=== PATIENT | female | born 1955 | race Caucasian/White ===

== ENCOUNTER 2018-04-27 22:41 | Emergency (ER) | payer OTHER ==
[~2018-04-27] VITALS: Ht 167.6 cm; Wt 108.9 kg
[~2018-04-27 22:41] MED LIST: Glucophage1000 MG PO; LOSA25 PO; Norco 5-325 Ta1 EACH PO; SAXA2.5T; TOUJEO SOL300 UNIT/1 SC; Zofran4 MG PO
[2018-04-28] MEDS ORDERED: Apidra Sol100 UNIT/1 SC (02:18)
[2018-04-28] MEDS ORDERED: Percocet 5-3251 EACH PO (04:03)
== END 2018-04-28 04:21 | disposition home or self-care (01) ==
LOC: ER 22:41
DX: S82.831A Other fracture of upper and lower end of right fibula, initial encounter for closed fracture (principal); S80.12XA Contusion of left lower leg, initial encounter; S80.11XA Contusion of right lower leg, initial encounter; V40.6XXA Car passenger injured in collision with pedestrian or animal in traffic accident, initial encounter; Z91.040 Latex allergy status; Z88.8 Allergy status to other drugs, medicaments and biological substances; Z79.899 Other long term (current) drug therapy; Z79.84 Long term (current) use of oral hypoglycemic drugs; Z79.4 Long term (current) use of insulin
CPT/HCPCS: 29515; 73590; 73610; 96372; 99283-25; J1885

== ENCOUNTER → 2018-06-27 | Outpatient (CLI) | payer OTHER ==
[~2018-06-27] MED LIST changes: +Apidra Sol100 UNIT/1 SC; +Percocet 5-3251 EACH PO
== END | disposition home or self-care (01) ==
LOC: LAB SHORT 15:16 → LAB 15:16
DX: L03.115 Cellulitis of right lower limb (principal)
CPT/HCPCS: 87070; 87075; 87147; 87205

== ENCOUNTER → 2018-07-16 | Outpatient (CLI) | payer OTHER | END | disposition home or self-care (01) | LOC: LAB 16:17 → LAB SHORT 16:17 | DX: L03.115 Cellulitis of right lower limb (principal) | CPT/HCPCS: 87070; 87075; 87077; 87147; 87186; 87205 ==

== ENCOUNTER 2018-08-08 00:12 | Day surgery (SDC) | payer OTHER | END 2018-08-08 22:42 | disposition home or self-care (01) | LOC: WOUND 00:12 | DX: E11.622 Type 2 diabetes mellitus with other skin ulcer (principal); L97.825 Non-pressure chronic ulcer of other part of left lower leg with muscle involvement without evidence of necrosis; R60.0 Localized edema ==

== ENCOUNTER 2018-08-14 | Day surgery (SDC) | payer OTHER | END 2018-08-15 22:48 | disposition home or self-care (01) | LOC: WOUND | DX: E11.622 Type 2 diabetes mellitus with other skin ulcer (principal); L97.812 Non-pressure chronic ulcer of other part of right lower leg with fat layer exposed; L97.825 Non-pressure chronic ulcer of other part of left lower leg with muscle involvement without evidence of necrosis; R60.0 Localized edema; L92.8 Other granulomatous disorders of the skin and subcutaneous tissue ==

== ENCOUNTER 2018-10-02 00:22 | Day surgery (SDC) | payer OTHER | END 2018-10-02 22:52 | disposition home or self-care (01) | LOC: WOUND 00:22 | PROC: 0HBKXZZ Excision of Right Lower Leg Skin, External Approach (ICD-10-PCS; principal; 2018-10-02) | DX: E11.622 Type 2 diabetes mellitus with other skin ulcer (principal); L97.812 Non-pressure chronic ulcer of other part of right lower leg with fat layer exposed; R60.0 Localized edema ==

== ENCOUNTER 2018-10-10 09:57 | Day surgery (SDC) | payer OTHER | END 2018-10-10 22:49 | disposition home or self-care (01) | LOC: WOUND 09:57 | DX: L97.812 Non-pressure chronic ulcer of other part of right lower leg with fat layer exposed (principal); V89.2XXD Person injured in unspecified motor-vehicle accident, traffic, subsequent encounter; R60.0 Localized edema; E11.9 Type 2 diabetes mellitus without complications | CPT/HCPCS: 87070; 87075; 87205 ==

== ENCOUNTER 2018-10-11 12:45 | Day surgery (SDC) | payer OTHER | END 2018-10-11 22:57 | disposition home or self-care (01) | LOC: WOUND 12:45 | DX: L97.812 Non-pressure chronic ulcer of other part of right lower leg with fat layer exposed (principal); V89.2XXD Person injured in unspecified motor-vehicle accident, traffic, subsequent encounter; R60.0 Localized edema; E11.9 Type 2 diabetes mellitus without complications ==

== ENCOUNTER 2018-10-14 07:40 | Day surgery (SDC) | payer OTHER | END 2018-10-14 22:42 | disposition home or self-care (01) | LOC: WOUND 07:40 | DX: L97.812 Non-pressure chronic ulcer of other part of right lower leg with fat layer exposed (principal); R60.0 Localized edema; E11.9 Type 2 diabetes mellitus without complications; V89.2XXD Person injured in unspecified motor-vehicle accident, traffic, subsequent encounter | CPT/HCPCS: G0463 ==

== ENCOUNTER 2018-10-17 08:05 | Day surgery (SDC) | payer OTHER | END 2018-10-17 22:43 | disposition home or self-care (01) | LOC: WOUND 08:05 | DX: L97.812 Non-pressure chronic ulcer of other part of right lower leg with fat layer exposed (principal); E11.9 Type 2 diabetes mellitus without complications; R60.0 Localized edema; V89.2XXD Person injured in unspecified motor-vehicle accident, traffic, subsequent encounter ==

== ENCOUNTER 2018-10-22 08:01 | Day surgery (SDC) | payer OTHER | END 2018-10-22 22:37 | disposition home or self-care (01) | LOC: WOUND 08:01 | DX: Z48.00 Encounter for change or removal of nonsurgical wound dressing (principal); E11.622 Type 2 diabetes mellitus with other skin ulcer; L97.812 Non-pressure chronic ulcer of other part of right lower leg with fat layer exposed; R60.0 Localized edema | CPT/HCPCS: G0463 ==

== ENCOUNTER 2018-11-05 00:08 | Day surgery (SDC) | payer OTHER | END 2018-11-05 23:04 | disposition home or self-care (01) | LOC: WOUND 00:08 | DX: L97.812 Non-pressure chronic ulcer of other part of right lower leg with fat layer exposed (principal); V89.2XXD Person injured in unspecified motor-vehicle accident, traffic, subsequent encounter; R60.0 Localized edema; E11.9 Type 2 diabetes mellitus without complications ==

== ENCOUNTER 2018-11-12 08:06 | Day surgery (SDC) | payer OTHER | END 2018-11-12 22:53 | disposition home or self-care (01) | LOC: WOUND 08:06 | DX: L97.812 Non-pressure chronic ulcer of other part of right lower leg with fat layer exposed (principal); V89.2XXD Person injured in unspecified motor-vehicle accident, traffic, subsequent encounter; R60.0 Localized edema; E11.9 Type 2 diabetes mellitus without complications; Z79.4 Long term (current) use of insulin ==

== ENCOUNTER 2018-11-19 08:00 | Day surgery (SDC) | payer OTHER | END 2018-11-19 22:46 | disposition home or self-care (01) | LOC: WOUND 08:00 | PROC: 0HBKXZZ Excision of Right Lower Leg Skin, External Approach (ICD-10-PCS; principal; 2018-11-19) | DX: E11.622 Type 2 diabetes mellitus with other skin ulcer (principal); L97.812 Non-pressure chronic ulcer of other part of right lower leg with fat layer exposed; R60.0 Localized edema ==

== ENCOUNTER 2018-11-26 08:04 | Day surgery (SDC) | payer OTHER | END 2018-11-26 22:42 | disposition home or self-care (01) | LOC: WOUND 08:04 | DX: L97.812 Non-pressure chronic ulcer of other part of right lower leg with fat layer exposed (principal); V89.2XXD Person injured in unspecified motor-vehicle accident, traffic, subsequent encounter; R60.0 Localized edema; E11.9 Type 2 diabetes mellitus without complications; Z79.4 Long term (current) use of insulin ==

== ENCOUNTER 2018-12-03 00:07 | Day surgery (SDC) | payer OTHER | END 2018-12-03 22:49 | disposition home or self-care (01) | LOC: WOUND 00:07 | DX: L97.812 Non-pressure chronic ulcer of other part of right lower leg with fat layer exposed (principal); V89.2XXD Person injured in unspecified motor-vehicle accident, traffic, subsequent encounter; R60.0 Localized edema; E11.9 Type 2 diabetes mellitus without complications; Z79.4 Long term (current) use of insulin ==

== ENCOUNTER 2018-12-10 01:43 | Day surgery (SDC) | payer OTHER | END 2018-12-10 22:48 | disposition home or self-care (01) | LOC: WOUND 01:43 | DX: L97.812 Non-pressure chronic ulcer of other part of right lower leg with fat layer exposed (principal); V89.2XXD Person injured in unspecified motor-vehicle accident, traffic, subsequent encounter; R60.0 Localized edema; E11.9 Type 2 diabetes mellitus without complications; Z79.4 Long term (current) use of insulin; Z79.84 Long term (current) use of oral hypoglycemic drugs ==

== ENCOUNTER 2018-12-24 00:15 | Day surgery (SDC) | payer OTHER | END 2018-12-24 22:41 | disposition home or self-care (01) | LOC: WOUND 00:15 | DX: L97.812 Non-pressure chronic ulcer of other part of right lower leg with fat layer exposed (principal); V89.2XXD Person injured in unspecified motor-vehicle accident, traffic, subsequent encounter; R60.0 Localized edema; E11.9 Type 2 diabetes mellitus without complications; Z79.4 Long term (current) use of insulin ==

== ENCOUNTER 2018-12-31 00:12 | Day surgery (SDC) | payer OTHER | END 2018-12-31 22:58 | disposition home or self-care (01) | LOC: WOUND 00:12 | DX: E11.622 Type 2 diabetes mellitus with other skin ulcer (principal); L97.812 Non-pressure chronic ulcer of other part of right lower leg with fat layer exposed; I10 Essential (primary) hypertension; R60.0 Localized edema | CPT/HCPCS: G0463 ==

== ENCOUNTER 2019-01-07 08:02 | Day surgery (SDC) | payer OTHER | END 2019-01-07 22:40 | disposition home or self-care (01) | LOC: WOUND 08:02 | DX: E11.622 Type 2 diabetes mellitus with other skin ulcer (principal); L97.812 Non-pressure chronic ulcer of other part of right lower leg with fat layer exposed; I10 Essential (primary) hypertension | CPT/HCPCS: 87070; 87186; 87205 ==

== ENCOUNTER 2019-01-14 01:02 | Day surgery (SDC) | payer OTHER | END 2019-01-14 23:26 | disposition home or self-care (01) | LOC: WOUND 01:02 | DX: E11.622 Type 2 diabetes mellitus with other skin ulcer (principal); L97.812 Non-pressure chronic ulcer of other part of right lower leg with fat layer exposed; I10 Essential (primary) hypertension; V89.2XXD Person injured in unspecified motor-vehicle accident, traffic, subsequent encounter ==

== ENCOUNTER 2019-02-04 08:01 | Day surgery (SDC) | payer OTHER | END 2019-02-04 22:42 | disposition home or self-care (01) | LOC: WOUND 08:01 | DX: E11.622 Type 2 diabetes mellitus with other skin ulcer (principal); L97.811 Non-pressure chronic ulcer of other part of right lower leg limited to breakdown of skin; I10 Essential (primary) hypertension; V89.2XXA Person injured in unspecified motor-vehicle accident, traffic, initial encounter ==

== ENCOUNTER 2019-02-11 08:00 | Day surgery (SDC) | payer OTHER | END 2019-02-11 22:51 | disposition home or self-care (01) | LOC: WOUND 08:00 | DX: E11.622 Type 2 diabetes mellitus with other skin ulcer (principal); L97.812 Non-pressure chronic ulcer of other part of right lower leg with fat layer exposed; I10 Essential (primary) hypertension ==

== ENCOUNTER 2019-02-18 07:55 | Day surgery (SDC) | payer OTHER | END 2019-02-18 23:03 | disposition home or self-care (01) | LOC: WOUND 07:55 | DX: E11.622 Type 2 diabetes mellitus with other skin ulcer (principal); L97.812 Non-pressure chronic ulcer of other part of right lower leg with fat layer exposed; I10 Essential (primary) hypertension; V89.2XXD Person injured in unspecified motor-vehicle accident, traffic, subsequent encounter ==

== ENCOUNTER 2019-02-25 08:00 | Day surgery (SDC) | payer OTHER | END 2019-02-25 22:48 | disposition home or self-care (01) | LOC: WOUND 08:00 | DX: E11.622 Type 2 diabetes mellitus with other skin ulcer (principal); L97.812 Non-pressure chronic ulcer of other part of right lower leg with fat layer exposed; I10 Essential (primary) hypertension; V89.2XXD Person injured in unspecified motor-vehicle accident, traffic, subsequent encounter ==

== ENCOUNTER 2019-03-04 08:06 | Day surgery (SDC) | payer OTHER | END 2019-03-04 22:57 | disposition home or self-care (01) | LOC: WOUND 08:06 | DX: E11.622 Type 2 diabetes mellitus with other skin ulcer (principal); L97.812 Non-pressure chronic ulcer of other part of right lower leg with fat layer exposed; I10 Essential (primary) hypertension | CPT/HCPCS: G0463 ==

== ENCOUNTER 2019-03-18 08:01 | Day surgery (SDC) | payer OTHER | END 2019-03-18 23:02 | disposition home or self-care (01) | LOC: WOUND 08:01 | DX: E11.622 Type 2 diabetes mellitus with other skin ulcer (principal); L97.812 Non-pressure chronic ulcer of other part of right lower leg with fat layer exposed; I10 Essential (primary) hypertension | CPT/HCPCS: G0463 ==

== ENCOUNTER 2019-03-25 08:03 | Day surgery (SDC) | payer OTHER | END 2019-03-25 23:28 | disposition home or self-care (01) | LOC: WOUND 08:03 | DX: E11.622 Type 2 diabetes mellitus with other skin ulcer (principal); L97.812 Non-pressure chronic ulcer of other part of right lower leg with fat layer exposed; Z88.8 Allergy status to other drugs, medicaments and biological substances; Z88.6 Allergy status to analgesic agent; Z91.040 Latex allergy status; V89.2XXA Person injured in unspecified motor-vehicle accident, traffic, initial encounter | CPT/HCPCS: G0463 ==

== ENCOUNTER 2019-04-15 08:00 | Day surgery (SDC) | payer OTHER | END 2019-04-15 23:44 | disposition home or self-care (01) | LOC: WOUND 08:00 | DX: E11.622 Type 2 diabetes mellitus with other skin ulcer (principal); L97.812 Non-pressure chronic ulcer of other part of right lower leg with fat layer exposed; I10 Essential (primary) hypertension | CPT/HCPCS: G0463 ==

== ENCOUNTER 2023-10-02 07:42 | Day surgery (SDC) | payer MEDICARE, BC ==
[~2023-10-02] VITALS: Ht 167.6 cm; Wt 104.3 kg
[~2023-10-02 07:42] MED LIST changes: -LOSA25 PO; +LOSARTAN POTAS100 M1 PO; +METFORMIN HCL500 M3 PO; +TOUJEO SOL300 UNIT/2 SC; +TRULICITY0.75 MG/01 SC
--- NOTE | 2023-10-02 08:19 | NUR ---
10/02/23 0819 Luana Solares: 0815 FRANCINE: 0816
[2023-10-02 09:10] VITALS: BP 145/73
== END 2023-10-02 09:27 | disposition home or self-care (01) ==
LOC: ORSCSDS 07:42
PROVIDERS: Student in an Organized Health Care Education/Training Program
PROC: 08RJ3JZ Replacement of Right Lens with Synthetic Substitute, Percutaneous Approach (ICD-10-PCS; principal; 2023-10-02 09:00)
DX: E11.36 Type 2 diabetes mellitus with diabetic cataract (principal); I10 Essential (primary) hypertension; E66.9 Obesity, unspecified; Z68.37 Body mass index [BMI] 37.0-37.9, adult; Z79.4 Long term (current) use of insulin; Z79.85 Long-term (current) use of injectable non-insulin antidiabetic drugs; Z79.899 Other long term (current) drug therapy
CPT/HCPCS: 82947; J2250; J3010; J7040; V2632

== ENCOUNTER 2023-10-12 07:22 | Day surgery (SDC) | payer MEDICARE, BC ==
[~2023-10-12] VITALS: Ht 167.6 cm; Wt 103.8 kg
--- NOTE | 2023-10-12 08:23 | NUR ---
10/12/23 0823 Luana Solares PROPARACAINE PLACED IN LEFT EYE AT 0812. PLEDGET PLACED IN LEFT EYE AT 0813 PATIENT TOELRATED WELL.
[2023-10-12 09:16] VITALS: BP 185/93
== END 2023-10-12 09:33 | disposition home or self-care (01) ==
LOC: ORSCSDS 07:22
PROVIDERS: Student in an Organized Health Care Education/Training Program
PROC: 08RK3JZ Replacement of Left Lens with Synthetic Substitute, Percutaneous Approach (ICD-10-PCS; principal; 2023-10-12 09:00)
DX: E11.36 Type 2 diabetes mellitus with diabetic cataract (principal); H25.12 Age-related nuclear cataract, left eye; Z96.1 Presence of intraocular lens; Z79.84 Long term (current) use of oral hypoglycemic drugs; Z79.4 Long term (current) use of insulin; Z79.899 Other long term (current) drug therapy
CPT/HCPCS: 82947; J2250; J3010; J7040; V2632